=== PATIENT | female | born 1990 | race Caucasian/White ===

== ENCOUNTER 2018-01-17 18:47 | Emergency (ER) | payer OTHER ==
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
[2018-01-17] MEDS ORDERED: IOPAMIDOL (ISOVUE-300) 100 ML BTL ONE (19:34)
[2018-01-17 22:02] VITALS: BP 127/71
== END 2018-01-17 22:13 | disposition home or self-care (01) ==
DX: S39.92XA Unspecified injury of lower back, initial encounter (principal); S22.31XA Fracture of one rib, right side, initial encounter for closed fracture; Z87.891 Personal history of nicotine dependence; V18.4XXA Pedal cycle driver injured in noncollision transport accident in traffic accident, initial encounter; Y92.410 Unspecified street and highway as the place of occurrence of the external cause; Y99.8 Other external cause status; Y93.55 Activity, bike riding
CPT/HCPCS: 82947-QW; Q9967

== ENCOUNTER 2018-06-05 17:45 | Emergency (ER) | payer OTHER ==
[2018-06-05 18:17] VITALS: BP 123/87
--- NOTE | 2018-06-05 18:27 | EDPHY ---
H & P Stated Complaint: HIT L THUMB WITH HAMMER AT WORK Time Seen by Provider: 06/05/18 18:26 HPI/ROS: HPI: This is a 28-year-old female who presents with Chief Complaint: HIT L THUMB WITH HAMMER AT WORK Location: Left thumb Quality: Injury Duration: Prior to arrival Signs and Symptoms: No bleeding, no radiation, no numbness, no weakness, no tingling, no incontinence, no decreased range of motion, no swelling, + pain, no fever Timing: Acute Severity: Moderate Context: Patient is right-hand dominant, works at the [employer], presents with complaints of accidentally hitting the tip of her left thumb with a hammer at work prior to arrival. She initially went to the urgent care and was told to go to the emergency room. She reports pain that is constant and moderate in nature but nonradiating. Denies radiation, weakness, paresthesias. LMP 2-3 weeks ago. Tetanus status is current. No nail involvement. Modifying Factors: None Comment: ROS: A comprehensive 10 system review of systems is otherwise negative aside from elements mentioned in the history of present illness. MEDICAL/SURGICAL/SOCIAL HISTORY: Medical history: DVT Surgical history: Left leg surgery Social history: Former smoker. CONSTITUTIONAL: Well-developed, well-nourished adult white female, awake and alert, no obvious distress HEENT: Atraumatic and normocephalic. NECK: supple EXTREMITIES: 2/2 pulses, strength 5/5, left thumb distal aspect shows 0.5 cm v- shaped, irregular, laceration. No nail involvement. DIP/PIP/MCP flexion/ extension intact with good light touch sensation. no deformities, no clubbing, no cyanosis or edema. NEUROLOGICAL: no focal neuro deficits. GCS 15. Light touch sensation intact. SKIN: Warm and dry, no erythema. no rash. Good capillary refill. Source: Patient Exam Limitations: No limitations - Personal History LMP (Females 10-55): 15-21 Days Ago Current Tetanus Diphtheria and Acellular Pertussis (TDAP): Unsure - Medical/Surgical History Hx Asthma: No Hx Chronic Respiratory Disease: No Hx Diabetes: No Hx Cardiac Disease: No Hx Renal Disease: No Hx Cirrhosis: No Hx Alcoholism: No Hx HIV/AIDS: No Hx Splenectomy or Spleen Trauma: No Other PMH: L FOOT SURGERY/L LEG DVT - Social History Smoking Status: Former smoker Constitutional: Initial Vital Signs Temperature (C) 36.7 C 06/05/18 18:14 Heart Rate 58 L 06/05/18 18:14 Respiratory Rate 17 06/05/18 18:14 Blood Pressure 123/87 H 18 18:14 O2 Sat (%) 97 06/05/18 18:14 O2 Delivery Mode Room Air Allergies/Adverse Reactions: No Known Allergies Allergy (Verified 06/05/18 18:13) Home Medications: Medication Instructions Recorded NK [No Known Home Meds] 01/17/18 Medical Decision Making - Diagnostics Imaging Results: Imaging Impressions Finger X-Ray 06/05/18 18:17 Impression: Possible small nondisplaced tuft fracture. Procedures: Procedure: Laceration repair. Verbal consent was obtained from the patient. The 1/2 cm, irregular, complex laceration on the left thumb was anesthetized in the usual fashion using 4 mL of 1% lidocaine without epinephrine. The wound was irrigated, draped and explored to its base with a gloved finger. There were no deep structures involved. No tendon injury was identified. The wound was repaired with #3, 5- 0 Prolene. Xeroform and clean sterile dressing applied. The procedure was performed by myself. Procedure: Splint placement. A left caged finger splint was applied. After application of the splint I returned and re-examined the patient. The splint was adequately immobilizing the joint and distal to the splint the patient's circulation and sensation was intact. ED Course/Re-evaluation: Left finger x-ray taken and show soft tissue swelling with questionable distal tuft nondisplaced fracture. Tetanus status is up-to-date. Laceration repair. Placed in caged finger splint. Verbal and written wound care instructions provided. No signs of neurovascular compromise/tenting of skin/compartment syndrome/ extremities and joints examined above and below area of concern and are neurovascularly intact. This patient was seen under the supervision of my secondary supervising physician. I evaluated care for this patient independently. Discussed this patient with Dr. Hauser. Differential Diagnosis: Differential diagnosis includes but is not limited to subungual hematoma, phalanx fracture, nerve injury, tendon injury, foreign body, laceration. Departure - Departure Disposition: Home, Routine, Self-Care Clinical Impression: Closed fracture of tuft of distal phalanx of left thumb Laceration of left thumb without complication Qualifiers: Encounter type: initial encounter Qualified Code(s): S61.012A - Laceration without foreign body of left thumb without damage to nail, initial encounter Condition: Good Instructions: Laceration (ED), Care For Your Stitches (ED), Finger Fracture (ED ) Additional Instructions: Keep the dressing/splint dry and in place for 3 days. After 3 days, you may remove the dressing and splint; wash the site daily with mild soap and water; then pat dry. Keep covered until fully healed. Do not soak in a bathtub or swim until sutures are removed. Take Tylenol 650 mg every 4 hours and/or Ibuprofen 600 mg every 8 hours with food as needed for pain. Wound Care Follow-Up: Removal of sutures in [ 10 ] days. Suture removal is complimentary in uncomplicated cases. Infection or abnormal findings would require reevaluation by the MD. In that case, you may be billed. Return to the ER immediately if you experience new or worsening pain, discoloration, numbness, tingling, or any other symptoms that concern you. Referrals: [facility],. [Clinic] - As per Instructions Corey Culp MD [Medical Doctor] - As per Instructions Stand Alone Forms: Work Excuse
[2018-06-05] MEDS ORDERED: TDAP ADULT 0.5 ML INJ (BOOSTRIX) IM ONE (18:50)
== END 2018-06-05 20:07 | disposition home or self-care (01) ==
PROC: 0HQGXZZ Repair Left Hand Skin, External Approach (ICD-10-PCS; principal; 2018-06-05)
DX: S61.012A Laceration without foreign body of left thumb without damage to nail, initial encounter (principal); S62.525A Nondisplaced fracture of distal phalanx of left thumb, initial encounter for closed fracture; W27.0XXA Contact with workbench tool, initial encounter; Y99.0 Civilian activity done for income or pay; Z86.718 Personal history of other venous thrombosis and embolism; Z87.891 Personal history of nicotine dependence
CPT/HCPCS: L3925

== ENCOUNTER 2018-06-18 20:02 | Emergency (ER) | payer OTHER ==
[2018-06-18] MEDS ORDERED: CEPHALEXIN 500MG PREPACK#4 BTL TAKEHOME ONE (20:55)
--- NOTE | 2018-06-18 20:55 | EDPHY ---
H & P Stated Complaint: L thumb poss infection, "concerned it's bursting from old sutures", Time Seen by Provider: 06/18/18 20:50 HPI/ROS: HPI: This is a 28-year-old female who presents with Chief Complaint: L thumb poss infection, "concerned it's bursting from old sutures", Location: Left thumb Quality: Possible infection Duration: Several days Signs and Symptoms: No bleeding, no radiation, no numbness, no weakness, no tingling, no incontinence, no decreased range of motion, no swelling, no pain, no fever Timing: Gradual onset Severity: Mild Context: Patient is right-hand dominant, presents with re-evaluation of left thumb. She sustained a laceration approximately 10-14 days ago. Sutures were removed. 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 Today at work her coworkers believes that her thumb looked infected. She denies any discharge, warmth, redness, decreased range of motion, fever. Tetanus is current Modifying Factors: Local wound care Comment: ROS: A comprehensive 10 system review of systems is otherwise negative aside from elements mentioned in the history of present illness. MEDICAL/SURGICAL/SOCIAL HISTORY: Medical history: Left leg DVT Surgical history: Left foot surgery Social history: Employed. CONSTITUTIONAL: Extremely well-appearing polite and cooperative adult white female, awake and alert, no obvious distress HEENT: Atraumatic and normocephalic. NECK: supple EXTREMITIES: 2/2 pulses, strength 5/5, left thumb shows well-approximated healing laceration with no induration and mild macerations. No discharge. No fluctuance. DIP/PIP/MCP flexion/extension intact with good light touch sensation. no deformities, no clubbing, no cyanosis or edema. NEUROLOGICAL: no focal neuro deficits. GCS 15. Light touch sensation intact. SKIN: Warm and dry, no erythema. no rash. Good capillary refill. Source: Patient Exam Limitations: No limitations - Personal History LMP (Females 10-55): Over 28 Days Ago Current Tetanus Diphtheria and Acellular Pertussis (TDAP): Yes - Medical/Surgical History Hx Asthma: No Hx Chronic Respiratory Disease: No Hx Diabetes: No Hx Cardiac Disease: No Hx Renal Disease: No Hx Cirrhosis: No Hx Alcoholism: No Hx HIV/AIDS: No Hx Splenectomy or Spleen Trauma: No Other PMH: L FOOT SURGERY/L LEG DVT - Social History Smoking Status: Former smoker Constitutional: Initial Vital Signs Temperature (C) 36.9 C 06/18/18 20:04 Heart Rate 100 06/18/18 20:04 Respiratory Rate 18 06/18/18 20:04 Blood Pressure 130/76 H 06/18/18 20:04 O2 Sat (%) 97 06/18/18 20:04 O2 Delivery Mode Room Air Allergies/Adverse Reactions: No Known Allergies Allergy (Verified 06/18/18 20:04) Home Medications: Medication Instructions Recorded Cephalexin [Keflex (*)] 500 mg PO TID #21 cap 06/18/18 Medical Decision Making ED Course/Re-evaluation: Patient does not have clear raji infection and does not show wound dehiscence. Cleaned at the bedside bacitracin clean sterile dressing applied. Given Keflex for antibiotic prophylaxis and work note for the next several days. Given written and verbal wound care instructions. No signs of neurovascular compromise/tenting of skin/compartment syndrome/ extremities and joints examined above and below area of concern and are neurovascularly intact. This patient was seen under the supervision of my secondary supervising physician. I evaluated care for this patient independently. Discussed this patient with Dr. Alvarez. Differential Diagnosis: Differential diagnosis includes but is not limited to tenosynovitis, cellulitis , abscess, subungual hematoma. - Data Points Medications Given: Discontinued Medications Cephalexin (Keflex 500 Mg Prepack#4) 1 btl TAKEHOME EDNOW ONE PRN Reason: Protocol Stop: 06/18/18 20:56 Last Admin: 06/18/18 21:05 Dose: 1 btl Departure - Departure Disposition: Home, Routine, Self-Care Clinical Impression: Laceration of left thumb with infection Qualifiers: Encounter type: initial encounter Qualified Code(s): S61.012A - Laceration without foreign body of left thumb without damage to nail, initial encounter Condition: Good Instructions: Cephalexin (By mouth), Cellulitis (ED) Additional Instructions: Wash the site daily with mild soap and water; then pat dry. Apply topical antibiotic ointment and then covered with clean sterile dressing until fully healed. Take antibiotics as directed until fully healed. Limit use of left thumb as much as possible until fully healed. Take Tylenol 650 mg every 4 hours and/or Ibuprofen 600 mg every 8 hours with food as needed for pain. Referrals: [facility],. [Clinic] - As per Instructions Stand Alone Forms: Work Excuse Prescriptions: Cephalexin [Keflex (*)] 500 mg PO TID #21 cap
[2018-06-18 21:20] VITALS: BP 105/71
== END 2018-06-18 21:22 | disposition home or self-care (01) ==
DX: Z48.00 Encounter for change or removal of nonsurgical wound dressing (principal); S61.012S Laceration without foreign body of left thumb without damage to nail, sequela; Z86.718 Personal history of other venous thrombosis and embolism